=== PATIENT | male | born 1980 | race Two or more races ===

== ENCOUNTER 2017-03-11 02:21 | Emergency (ER) | payer SELFPAY ==
[~2017-03-11] VITALS: Ht 172.7 cm; Wt 81.6 kg
[2017-03-11 02:28] VITALS: BP 179/106
== END 2017-03-11 06:44 | disposition left against medical advice (07) ==
LOC: ER 02:26
DX: M54.9 Dorsalgia, unspecified (principal); R42 Dizziness and giddiness; Z53.21 Procedure and treatment not carried out due to patient leaving prior to being seen by health care provider
CPT/HCPCS: 71045

== ENCOUNTER 2020-08-20 01:03 | Emergency (ER) | payer BC, OTHER ==
[~2020-08-20] VITALS: Ht 172.7 cm; Wt 81.6 kg
[2020-08-20 02:17] LABS: Basophils # (auto) 0.1 10 ^3/uL (0-0.2); Basophils % (auto) 1.3 % (0.0-2.0); Eosinophils # (auto) 0.2 10 ^3/uL (0-0.8); Eosinophils % (auto) 2.1 % (0.0-7.0); Hematocrit 49.1 % (41.0-53.0); Hemoglobin 17.4 g/dL (13.5-17.5); Lymphocytes # (auto) 2.1 10 ^3/uL (0.4-5.4); Lymphocytes % (auto) 27.1 % (10.0-50.0); Mean Corpuscular Hemoglobin 31.7 pg (28.0-32.0); Mean Corpuscular Hgb Conc. 35.4 g/dL (32.0-36.0); Mean Corpuscular Volume 89.5 fL (80.0-100.0); Monocytes # (auto) 0.8 10 ^3/uL (0-1.3); Neutrophils # (auto) 4.6 10 ^3/uL (1.6-8.6); Neutrophils % (auto) 59.5 % (37.0-80.0); Nucleated Red Blood Cells % 0.1 %; Platelet Count (auto) 261 10^3/uL (140-450); Red Blood Cells 5.49 10^6/uL (4.5-5.90); Red Cell Distribution Width 13.1 % (11.8-14.3); White Blood Cell 7.8 10^3/uL (4.4-10.8)
[2020-08-20 02:35] LABS: Alanine Aminotransferase 45 U/L (16-61); Albumin 3.5 g/dL (3.4-5.0); Anion Gap 7 (5-15); Aspartate Aminotransferase 37 U/L (15-37); BUN/Creatinine Ratio 15.7; Blood Urea Nitrogen 14 mg/dL (7-18); Calcium 8.1 mg/dL (8.5-10.1); Carbon Dioxide 27 mmol/L (21-32); Chloride 104 mmol/L (98-107); GFR African American 121 mL/min; GFR Non-African American 100 mL/min; Glucose 105 mg/dL (74-106); Potassium 3.6 mmol/L (3.5-5.1); Sodium 138 mmol/L (136-145)
[2020-08-20 02:39] LABS: Alkaline Phosphatase 72 U/L (45-117); Bilirubin, Total 0.6 mg/dL (0.2-1.0); Total Protein 7.5 g/dL (6.4-8.2)
[2020-08-20] MEDS ORDERED: LIDOCAINE VISCOUS 2% 15ML UD PO ONE (03:15)
[2020-08-20] MEDS ORDERED: FAMOTIDINE (10MG/ML) 2ML VL IV ONE (03:15)
[2020-08-20 05:53] VITALS: BP 153/102
== END 2020-08-20 06:12 | disposition home or self-care (01) ==
LOC: ER 01:04
DX: R07.89 Other chest pain (principal); I10 Essential (primary) hypertension; K21.9 Gastro-esophageal reflux disease without esophagitis; I11.0 Hypertensive heart disease with heart failure; I50.9 Heart failure, unspecified
CPT/HCPCS: 36415; 71045; 80053; 83880; 84484; 85025; 85049; 93005; 96374; 99285; J3490

== ENCOUNTER 2021-05-06 11:08 | Emergency (ER) | payer BC ==
[~2021-05-06] VITALS: Ht 172.7 cm; Wt 83.5 kg
[2021-05-06 12:49] LABS: Basophils # (auto) 0.1 10 ^3/uL (0-0.2); Basophils % (auto) 1.3 % (0.0-2.0); Eosinophils # (auto) 0.1 10 ^3/uL (0-0.8); Eosinophils % (auto) 1.7 % (0.0-7.0); Hematocrit 50.3 % (41.0-53.0); Hemoglobin 16.9 g/dL (13.5-17.5); Lymphocytes # (auto) 1.3 10 ^3/uL (0.4-5.4); Lymphocytes % (auto) 29.3 % (10.0-50.0); Mean Corpuscular Hemoglobin 30.4 pg (28.0-32.0); Mean Corpuscular Hgb Conc. 33.6 g/dL (32.0-36.0); Mean Corpuscular Volume 90.4 fL (80.0-100.0); Monocytes # (auto) 0.6 10 ^3/uL (0-1.3); Monocytes % (auto) 13.6 % (0.0-12.0); Neutrophils # (auto) 2.5 10 ^3/uL (1.6-8.6); Neutrophils % (auto) 54.1 % (37.0-80.0); Nucleated Red Blood Cells % 1.4 %; Red Blood Cells 5.57 10^6/uL (4.5-5.90); Red Cell Distribution Width 13.6 % (11.8-14.3); White Blood Cell 4.6 10^3/uL (4.4-10.8)
[2021-05-06 13:33] LABS: Albumin 3.8 g/dL (3.4-5.0); Bilirubin, Total 0.6 mg/dL (0.2-1.0); Calcium 8.7 mg/dL (8.5-10.1); Total Protein 8.3 g/dL (6.4-8.2)
[2021-05-06] MEDS ORDERED: TRAM-297 PO (14:40)
[2021-05-06] MEDS ORDERED: METR500T PO (14:40)
[2021-05-06 15:15] VITALS: BP 160/85
== END 2021-05-06 15:42 | disposition home or self-care (01) ==
LOC: ER 11:08
DX: K63.89 Other specified diseases of intestine (principal); I10 Essential (primary) hypertension
CPT/HCPCS: 36415; 74176; 80053; 82150; 83690; 85025

== ENCOUNTER 2021-07-24 23:10 | Emergency (ER) | payer BC ==
[~2021-07-24] VITALS: Ht 170.2 cm; Wt 82.6 kg
[~2021-07-24 23:10] MED LIST: METR500T PO; TRAM-297 PO
[2021-07-24] MEDS ORDERED: ASPirin 81 mg TAB PO ONE (23:45)
[2021-07-25 00:29] LABS: Albumin 3.9 g/dL (3.4-5.0); Calcium 8.7 mg/dL (8.5-10.1); Potassium 3.5 mmol/L (3.5-5.1)
[2021-07-25 00:34] LABS: Bilirubin, Total 0.8 mg/dL (0.2-1.0); Total Protein 7.5 g/dL (6.4-8.2)
[2021-07-25 00:43] LABS: Basophils # (auto) 0.1 10 ^3/uL (0-0.2); Basophils % (auto) 1.4 % (0.0-2.0); Eosinophils # (auto) 0.2 10 ^3/uL (0-0.8); Eosinophils % (auto) 2.6 % (0.0-7.0); Hematocrit 48.4 % (41.0-53.0); Hemoglobin 16.4 g/dL (13.5-17.5); Lymphocytes # (auto) 2.6 10 ^3/uL (0.4-5.4); Lymphocytes % (auto) 37.6 % (10.0-50.0); Mean Corpuscular Hemoglobin 30.7 pg (28.0-32.0); Mean Corpuscular Volume 90.4 fL (80.0-100.0); Monocytes % (auto) 14.5 % (0.0-12.0); Neutrophils % (auto) 43.9 % (37.0-80.0); Nucleated Red Blood Cells % 0.1 %; Red Blood Cells 5.35 10^6/uL (4.5-5.90); White Blood Cell 6.9 10^3/uL (4.4-10.8)
[2021-07-25 02:00] VITALS: BP 159/84
== END 2021-07-25 04:34 | disposition left against medical advice (07) ==
LOC: ER 23:10
DX: I24.9 Acute ischemic heart disease, unspecified (principal); I10 Essential (primary) hypertension; Z53.29 Procedure and treatment not carried out because of patient's decision for other reasons; Z20.822 Contact with and (suspected) exposure to COVID-19
CPT/HCPCS: 36415; 71045; 80053; 83880; 84484; 85025; 85379; 93005

== ENCOUNTER 2021-10-09 10:20 | Emergency (ER) | payer BC ==
[~2021-10-09] VITALS: Ht 152.4 cm; Wt 87.5 kg
[2021-10-09] MEDS ORDERED: IBUP800T27 PO (11:18)
[2021-10-09] MEDS ORDERED: AMOX-277 PO (11:18)
[2021-10-09 11:19] VITALS: BP 109/76
== END 2021-10-09 11:24 | disposition home or self-care (01) ==
LOC: ER 10:20
DX: H66.91 Otitis media, unspecified, right ear (principal); I10 Essential (primary) hypertension

== ENCOUNTER 2024-09-27 11:15 | Emergency (ER) | payer BC ==
[~2024-09-27] VITALS: Ht 172.7 cm; Wt 81.8 kg
[~2024-09-27 11:15] MED LIST changes: +AMOX875T4 PO; +IBUP-1456 PO
[2024-09-27 11:18] VITALS: BP 127/92; RESP 18; TEMP 98.2; O2SAT 96
--- NOTE | 2024-09-27 11:28 | ECG ---
[facility] Test Date: 2024-09-27 Test Time: 11:20:19 Pat Name: HERMINIO ORTIZ Department: ED Room: Gender: M [employer] Attendant: katiana : 1980 Requested By: AARON SOSA Order Number: [id number] Reading MD: Measurements Intervals [place] Rate: 70 P: 58 CT: 113 QRS: 43 QRSD: 81 T: -17 QT: 371 QTc: 401 Interpretive Statements Sinus rhythm Borderline short CT interval Repol abnrm suggests ischemia, inferior leads Borderline ST elevation, lateral leads Please click the below link to view image of tracing.
[2024-09-27 11:36] VITALS: PULSE 70
--- NOTE | 2024-09-27 11:36 | ED.PDOC ---
HPI Comments 44 y/o M, with PMhx of HTN and GERD presents to the ED for CC of chest pain. Patient states, he has been experiencing substernal chest pain that radiates to his left-arm onset, [id number] ago. Patient reports, associated jaw numbness as a result to symptoms. Patient relays, that he went to PCP office today (09/27/24) for symptoms and was relayed to the ED for a further evaluation. Patient denies shortness of breath, dizziness, palpitations, headache, nausea, or vomiting. No other associated symptoms, modifiers, recent injuries or sick contacts present at this time. Chief Complaint: Chest Pain Time Seen by MD: 11:30 Primary Care Provider: DR. RODRIGUEZ Reviewed Notes: Nurses Notes, Medications, Allergies Allergies: Coded Allergies: NO KNOWN ALLERGIES (Unverified , 03/11/17) Home Meds Active Scripts Ibuprofen (Ibuprofen) 800 Mg Tab, 800 MG PO TID PRN, #30 TAB Prov:GEOFF RUBALCAVA 10/09/21 Amoxicillin & Pot Clavulanate (Amoxicillin/Potassium Cla) 875 Mg Tab, 875 MG PO BID, #20 TAB Prov:GEOFF RUBALCAVA 10/09/21 Tramadol Hcl (Ultram) 50 Mg Tab, 1 TAB PO Q6HR, #30 TAB Prov:KAYLEY THOMAS MD 05/06/21 Metronidazole (Flagyl) 500 Mg Tab, 500 MG PO BID for 7 Days, #14 TAB Prov:KAYLEY THOMAS MD 05/06/21 Information Source: Patient Mode of Arrival: Ambulatory Severity: Moderate Timing: Weeks Duration: Since onset Prehospital treatment: None Location: Substernal Radiation: Jaw, Arm (L) Onset: At Rest Cardiac Risk Factors: HTN PE Risk Factors: None History of: None Modifying Factors: Nothing Associated Signs and Symptoms: None Past Medical History PAST MEDICAL HISTORY: GERD, HTN Surgical History: Denies all surgeries Family History Family History: Reviewed,noncontributory to illness, Family hx of HTN Social History Smoker: Non-Smoker Alcohol: Occasionally Drugs: Denies Drug Use Lives In: Home Constitutional: denies: chills, diaphoresis, fatigue, fever, malaise, sweats, weakness, others EENTM: denies: blurred vision, double vision, ear bleeding, ear discharge, ear drainage, ear pain, ear ringing, eye pain, eye redness, hearing loss, mouth pain, mouth swelling, nasal discharge, nose bleeding, nose congestion, nose pain, photophobia, tearing, throat pain, throat swelling, voice changes, others Respiratory: denies: cough, hemoptysis, orthopnea, SOB at rest, shortness of breath, SOB with excertion, stridor, wheezing, others Cardiovascular: reports: chest pain; denies: dizzy spells, diaphoresis, Dyspnea on exertion, edema, irregular heart beat, left arm pain, lightheadedness, palpi tations, PND, syncope, others Gastrointestinal: denies: abdomen distended, abdominal pain, blood streaked bowels, constipated, diarrhea, dysphagia, difficulty swallowing, hematemesis, melena, nausea, poor appetite, poor fluid intake, rectal bleeding, rectal pain, vomiting, others Genitourinary: denies: burning, dysuria, flank pain, frequency, hematuria, incontinence, penile discharge, penile sore, pain, testicle pain, testicle swelling, urgency, others Neurological: denies: dizziness, fainting, headache, left sided numbness, left sided weakness, numbness, paresthesia, pre-existing deficit, right sided numbness, right sided weakness, seizure, speech problems, tingling, tremors, weakness, others Musculoskeletal: denies: back pain, gout, joint pain, joint swelling, muscle pain, muscle stiffness, neck pain, others Integumetry: denies: bruises, change in color, change in hair/nails, dryness, laceration, lesions, lumps, rash, wounds, others Allergic/Immunocompromised: denies: Difficulty Healing, Frequent Infections, Hives, Itching, others Hematologic/Lymphatic: denies: anemia, blood clots, easy bleeding, easy bruis ing, swollen glands, others Endocrine: denies: excessive hunger, excessive sweating, excessive thirst, exc essive urination, flushing, intolerance to cold, intolerance to heat, unexplained weight gain, unexplained weight loss, others Psychiatric: denies: anxiety, bipolar disorder, depression, hopeless, panic disorder, schizophrenia, sleepless, suicidal, others All Other Systems: Reviewed and Negative Physical Exam General Appearance: Moderate Distress HEENT: Normal ENT Inspection, Pharynx Normal, TMs Normal Neck: Full Range of Motion, Non-Tender, Normal, Normal Inspection Respiratory: Chest Non-Tender, Lungs Clear, No Accessory Muscle Use, No Respiratory Distress, Normal Breath Sounds Cardiovascular: No Edema, No JVD, No Murmur, No Gallop, Normal Peripheral Pulses, Regular Rate/Rhythm Breast Exam: Deferred Gastrointestinal: No Organomegaly, Non Tender, No Pulsatile Mass, Normal Bowel Sounds, Soft Genitalia: Deferred Pelvic: Deferred Rectal: Deferred Extremities: No calf tenderness, Normal capillary refill, Normal inspection, Normal range of motion, Non-tender, No pedal edema Musculoskeletal : Apperance: Normal Neurologic: Alert, rn social services II-XII nml as Tested, No Motor Deficits, Normal Affect, Normal Mood, No Sensory Deficits Cerebellar Function: Normal Reflexes: Normal Skin: Dry, Normal Color, Warm Peripheral Pulses: 3+ Radial (R), 3+ Radial (L) Lymphatic: No Adenopathy EKG EKG : Pulse Rate (adult): 70 [place]: Normal Cardiac Rhythm: NSR Block: None Hypertrophy: None ST: Normal Was a procedure done? Was a procedure done?: No CP Differential Dx Differential Diagnosis: A-fib, A-Flutter, Angina, Anxiety / Panic Attack, Atrial Dysrhythmia, Electrolyte Disorder Differential Diagnosis: Angina, Chest Wall Pain, Costochondritis X-Ray, Labs, Meds, VS Vital Signs Date Time Temp Pulse Resp B/P (MAP) Pulse Ox O2 Delivery O2 Flow Rate FiO2 09/27/24 11:36 70 09/27/24 11:20 70 09/27/24 11:18 98.2 76 18 127/92 96 98.2 Lab Test 09/27/24 13:29 09/27/24 12:16 Range/Units Troponin I High Sensitivity 4 4 </=54 ng/L White Blood Count 5.0 4.4-10.8 10^3/uL Red Blood Count 5.70 4.5-5.90 10^6/uL Hemoglobin 17.3 13.5-17.5 g/dL Hematocrit 50.6 41.0-53.0 % Mean Corpuscular Volume 88.8 80.0-100.0 fL Mean Corpuscular Hemoglobin 30.4 28.0-32.0 pg Mean Corpuscular Hemoglobin Concent 34.2 32.0-36.0 g/dL Red Cell Distribution Width 13.3 11.8-14.3 % Platelet Count 246 140-450 10^3/uL Mean Platelet Volume 8.2 6.9-10.8 fL Neutrophils (%) (Auto) 63.6 37.0-80.0 % Lymphocytes (%) (Auto) 24.0 10.0-50.0 % Monocytes (%) (Auto) 9.3 0.0-12.0 % Eosinophils (%) (Auto) 2.1 0.0-7.0 % Basophils (%) (Auto) 1.0 0.0-2.0 % Neutrophils # (Auto) 3.2 1.6-8.6 10 ^3/uL Lymphocytes # (Auto) 1.2 0.4-5.4 10 ^3/uL Monocytes # (Auto) 0.5 0-1.3 10 ^3/uL Eosinophils # (Auto) 0.1 0-0.8 10 ^3/uL Basophils # (Auto) 0 0-0.2 10 ^3/uL Nucleated Red Blood Cells 0.1 % D-Dimer, Quantitative 0.31 0.0-0.49 mg/L FEU Sodium Level 139 136-145 mmol/L Potassium Level 4.2 3.5-5.1 mmol/L Chloride Level 103 98-107 mmol/L Carbon Dioxide Level 30 20-31 mmol/L Anion Gap 6 5-15 Blood Urea Nitrogen 14 9-23 mg/dL Creatinine 0.97 0.700-1.30 mg/dL Glomerular Filtration Rate Calc 98 >90 mL/min BUN/Creatinine Ratio 14.4 10.0-20.0 Serum Glucose 102 74-106 mg/dL Calcium Level 9.1 8.7-10.4 mg/dL [place] [address] Ph: [phone] DIAGNOSTIC IMAGING Diagnostic Imaging Report : [id number] Signed PATIENT: HERMINIO ORTIZ ACCT: [id number] UNIT: [id number] : 1980 LOC: ER ROOM / BED: / AGE / SEX: 44 / M ADM STATUS: REG ER SERVICE 1133 ORDERING PHYSICIAN: AARON OSSA MD PROCEDURE(s): CXRP - CHEST PORTABLE REASON: sob ORDER NUMBER(s): [id number], ACCESSION NUMBER(s): [id number] CHEST RADIOGRAPH Indication: sob Technique: Single frontal view of the chest was obtained COMPARISON: CHEST PORTABLE on DOS: 07/24/21, CXRP on DOS: 07/24/21, CHEST PORTABLE on DOS: 08/20/20 FINDINGS: Lines and Tubes: None Lungs: Clear Pleura: No effusion. No pneumothorax. Cardiomediastinal contours: Unremarkable Bones: Unremarkable IMPRESSION: No acute disease. ATED BY: LUKE DONG MD DICTATED DATE/TIME: 09/27/241154 SIGNED BY: LUKE DONG MD SIGNED DATE/TIME: 09/27/241154 CC: [place] [address] Ph: [phone] DIAGNOSTIC IMAGING Diagnostic Imaging Report : [id number] Signed PATIENT: HERMINIO ORTIZ ACCT: [id number] UNIT: [id number] : 1980 LOC: ER ROOM / BED: / AGE / SEX: 44 / M ADM STATUS: REG ER SERVICE 1133 ORDERING PHYSICIAN: AARON SOSA MD PROCEDURE(s): HWOCT - HEAD WITHOUT CONTRAST REASON: tia ORDER NUMBER(s): [id number], ACCESSION NUMBER(s): [id number] EXAM: CT HEAD WITHOUT CONTRAST INDICATION: tia TECHNIQUE: CT of the head without intravenous contrast. Coronal and sagittal reformatted images are submitted. Radiation Dose : 1. Head: CT Dose: CTDI volume is 58.28 mGy. Dose-length product is 1263.31 mGy*cm The dose indicators for CT are the volume Computed Tomography (CT) Dose Index (CTDIvol) and the Dose Length Product (DLP), and are measured in units of mGy and mGy-cm, respectively. These indicators are not patient dose, but values generated from the CT scanner acquisition factors. The report includes radiation exposure data for exposures received during this examination. All CT scans at this medical facility are performed using dose modulation techniques as appropriate to a performed exam including the following: Automated exposure control was utilized; adjustment of the MA and/or KV according to patient size; and use of iterative reconstruction technique. COMPARISON: None FINDINGS: There is no evidence of acute intracranial hemorrhage, extra-axial collection, mass effect, midline shift, herniation or hydrocephalus. The ventricles, sulci and cisterns are age appropriate. The chang-white differentiation is intact. The mastoid air cells are clear. Mucosal thickening in the maxillary sinuses. No depressed calvarial fracture. The surrounding soft tissues are unremarkable. IMPRESSION: 1. No evidence of acute intracranial abnormality. ATED BY: MONA MURILLO MD DICTATED DATE/TIME: 09/27/24 120 SIGNED BY: MONA MURILLO MD SIGNED DATE/TIME: 09/27/24 1203 CC: Patient alert. Complaining of chest pain. Vitals stable. Answering questions. Has good muscle strength. Possible TIA. CT of the head reviewed does not show any acute changes. Possibly will need MRI. Continues to have chest pain. Spoke with the primary care physician. Was given aspirin. Explained to the patient. Continue monitoring. Time of 1ST Reevaluation: 12:00 Reevaluation 1ST: Unchanged Patient Education/Counseling: Diagnosis, Treatment Family Education/Counseling: No Family Present SEPSIS Sepsis Screen Physician Orders Troponin-I Hs (09/27/24 14:28) Chest Portable (09/27/24 11:33) Head Without Contrast (09/27/24 11:33) Vital Signs Date Time Temp Pulse Resp B/P (MAP) Pulse Ox O2 Delivery O2 Flow Rate FiO2 09/27/24 11:36 70 09/27/24 11:20 70 09/27/24 11:18 98.2 76 18 127/92 96 98.2 Laboratory Tests Test 09/27/24 12:16 White Blood Count 5.0 10^3/uL (4.4-10.8) Departure 1 Departure Time of Disposition: 13:23 Impression: Primary Impression: Chest pain of unknown etiology Additional Impression: TIA (transient ischemic attack) Disposition: ADMITTED INPATIENT Admit to: Med Surg Condition: Guarded Critical Care Note Critical Care Time?: No Stability Stability form required: No Heart Score Heart Score: Heart Score Response (Comments) Value History Slightly Suspicious 0 EKG Normal 0 Age 45-64 1 Risk Factors 1 or 2 risk factors 1 Troponin Normal limit 0 Total 2 I personally scribed for AARON SOSA MD ([email or web address]) on 09/27/24 at 11:36. Electronically submitted by Justine Quintana ([email or web address]). I personally scribed for AARON SOSA MD ([email or web address]) on 09/27/24 at 13:08. Electronically submitted by Justine Quintana ([email or web address]). I personally scribed for AARON SOSA MD ([email or web address]) on 09/27/24 at 13:09. Electronically submitted by Justine Quintana ([email or web address]). AARON SOSA MD Sep 27, 2024 11:36
--- NOTE | 2024-09-27 11:58 | DVH ---
CHEST RADIOGRAPH Indication: sob Technique: Single frontal view of the chest was obtained COMPARISON: CHEST PORTABLE on DOS: 07/24/21, CXRP on DOS: 07/24/21, CHEST PORTABLE on DOS: 08/20/20 FINDINGS: Lines and Tubes: None Lungs: Clear Pleura: No effusion. No pneumothorax. Cardiomediastinal contours: Unremarkable Bones: Unremarkable IMPRESSION: No acute disease.
--- NOTE | 2024-09-27 12:05 | DVH ---
EXAM: CT HEAD WITHOUT CONTRAST INDICATION: tia TECHNIQUE: CT of the head without intravenous contrast. Coronal and sagittal reformatted images are s ubmitted. Radiation Dose : 1. Head: CT Dose: CTDI volume is 58.28 mGy. Dose-length product is 1263.31 mGy*cm The dose indicators for CT are the volume Computed Tomography (CT) Dose Index (CTDIvol) and the Dose Length Product (DLP), and are measured in units of mGy and mGy-cm, respectively. These indicators are not patient dose, but values generated from the CT scanner acquisition factors. The report includes radiation exposure data for exposures received during this examination. All CT scans at this medical facility are performed using dose modulation techniques as appropriate to a performed exam including the following: Automated exposure control was utilized; adjustment of the MA and/or KV according to patient size; and use of iterative reconstruction technique. COMPARISON: None FINDINGS: There is no evidence of acute intracranial hemorrhage, extra-axial collection, mass effect, midline s hift, herniation or hydrocephalus. The ventricles, sulci and cisterns are age appropriate. The chang-white differentiation is intact. The mastoid air cells are clear. Mucosal thickening in the maxillary sinuses. No depressed calvarial fracture. The surrounding soft tissues are unremarkable. IMPRESSION: 1. No evidence of acute intracranial abnormality.
[2024-09-27 12:42] LABS: Hematocrit 50.6 % (41.0-53.0); Hemoglobin 17.3 g/dL (13.5-17.5); Mean Corpuscular Hemoglobin 30.4 pg (28.0-32.0); Mean Corpuscular Volume 88.8 fL (80.0-100.0); Nucleated Red Blood Cells % 0.1 %
[2024-09-27 12:50] LABS: Chloride 103 mmol/L (98-107); Potassium 4.2 mmol/L (3.5-5.1); Sodium 139 mmol/L (136-145)
[2024-09-27 12:51] LABS: Anion Gap 6 (5-15); Calcium 9.1 mg/dL (8.7-10.4); Carbon Dioxide 30 mmol/L (20-31)
[2024-09-27 12:56] LABS: BUN/Creatinine Ratio 14.4 (10.0-20.0); Blood Urea Nitrogen 14 mg/dL (9-23); Glucose 102 mg/dL (74-106)
== END 2024-09-27 17:07 | disposition left against medical advice (07) ==
LOC: ER 11:15
DX: G45.9 Transient cerebral ischemic attack, unspecified (principal); R07.89 Other chest pain; I10 Essential (primary) hypertension; Z79.899 Other long term (current) drug therapy
CPT/HCPCS: 36415; 70450; 71045; 80048; 84484; 85025; 85379; 93005